=== PATIENT | female | born 1985 | race Caucasian/White ===

== ENCOUNTER 2019-10-02 12:39 | Emergency (ER) | payer MEDICAID, OTHER ==
[~2019-10-02] VITALS: Ht 167.6 cm; Wt 67.0 kg
[2019-10-02] MEDS ORDERED: SODIUM BICARBONATE 1 MEQ/ML, 50ML VIAL ONE ×3 (12:52→13:05)
[2019-10-02] MEDS ORDERED: MIDAZOLAM 1 MG/ML, 5ML ONE (13:03)
[2019-10-02] MEDS ORDERED: FENTANYL PF 100 MCG/2ML ONE (13:03)
[2019-10-02] MEDS ORDERED: BIVALIRUDIN 250 MG ONE (13:04)
[2019-10-02] MEDS ORDERED: LIDOCAINE 1%, 20ML ONE (13:04)
--- NOTE | 2019-10-02 13:29 | NUR ---
code cardiac cancelled per dr mckay.
[2019-10-02] MEDS ORDERED: PROPOFOL 100 ML IV ONE (13:30)
[2019-10-02] MEDS ORDERED: VECURONIUM 10 MG IVPush ONE (13:30)
[2019-10-02] MEDS ORDERED: NOREPINEPHRINE 4 MG in SODIUM CHLORIDE 0.9% 246 ML IV PRN (13:30)
[2019-10-02] MEDS ORDERED: SODIUM BICARBONATE 8.4% 150 MEQ in DEXTROSE 5% 1,000 ML IV SCH (13:30)
[2019-10-02] MEDS ORDERED: EPINEPHRINE 8 MG in SODIUM CHLORIDE 0.9% 250 ML IV PRN (13:30)
[2019-10-02] MEDS ORDERED: EPINEPHRINE SYRINGE 0.1 MG/ML, 10ML ONE (13:55)
[2019-10-02 14:08] LABS: SALICYLATE LEVEL < 1.7 mg/dL (2.8-20.0)
--- NOTE | 2019-10-02 14:57 | NUR ---
LATE ENTRY FOR EVENTS [facility] ARRIVAL AT 1240- [facility] BROUGHT IN BY [facility] AFTER BEING FOUND ALTERED ALONE IN CAR. UPON ARRIVAL TO ED THE PATIENT WAS FOUND [facility], BEING BAGGED WITH SUPPLEMENTAL O2 BY EMS. THE PATIENT WAS FOUND TO HAVE STABLE VITAL SIGNS BUT DUE TO INABILITLY TO PROTECT AIRWAY THE PATIENT WAS INTUBATED USING RSI WITH A 7.5 ETT BY EMMA ARAUJO. SHORTLY AFTER RSI PULSES WERE LOST , ASYSTOLE ON MONITOR AND CPR BEGAN AT 1302. REFER TO CODE SHEET. Addendum: 10/02/19 at 1502 by [email or web address] LATE ENTRY FOR EVENTS [facility] ARRIVAL AT 1240- [facility] BROUGHT IN BY [facility] AFTER BEING FOUND ALTERED ALONE IN CAR. UPON ARRIVAL TO ED THE PATIENT WAS FOUND [facility], BEING BAGGED WITH SUPPLEMENTAL O2 BY EMS. THE PATIENT WAS FOUND TO HAVE STABLE VITAL SIGNS BY EMS BUT DUE TO INABILITLY TO PROTECT AIRWAY THE PATIENT WAS INTUBATED USING RSI WITH A 7.5 ETT BY EMMA ARAUJO. SHORTLY AFTER RSI PULSES WERE LOST , ASYSTOLE ON MONITOR AND CPR BEGAN AT 1302. REFER TO CODE SHEET.
[2019-10-02] MEDS ORDERED: NALOXONE 1 MG/ML, 2ML IVPush ONE (15:00)
[2019-10-02] MEDS ORDERED: SODIUM BICARBONATE 1 MEQ/ML, 50ML VIAL IVPush ONE (15:00)
[2019-10-02] MEDS ORDERED: SUCCINYLCHOLINE 20 MG/ML, 10ML IVPush ONE (15:00)
[2019-10-02] MEDS ORDERED: NALOXONE 0.4 MG/ML, 1ML IVPush ONE (15:00)
[2019-10-02] MEDS ORDERED: ETOMIDATE 20 MG/10 ML IV ONE (15:00)
--- NOTE | 2019-10-02 16:08 | NUR ---
MOTHER, PREMA GOLDSMITH [phone]
[2019-10-02 16:49] LABS: MEAN CORPUSCULAR HEMOGLOBIN 28.9 pg (27.0-34.8); MEAN CORPUSCULAR HGB CONC 31.8 g/dL (32.4-35.8); MEAN CORPUSCULAR VOLUME 90.8 fL (80-100); MEAN PLATELET VOLUME 8.7 fL (7.4-10.4); PLATELET COUNT 350 x10^3/uL (130-400); RED BLOOD COUNT 4.01 x10^6/uL (3.82-5.3); RED CELL DISTRIBUTION WIDTH 14.3 % (9.6-15.2)
[2019-10-02 16:54] LABS: ANION GAP 16 mmol/L (5-15); CHLORIDE 105 mmol/L (98-107); CREATININE 2.04 mg/dL (0.55-1.02)
[2019-10-02 16:55] LABS: ALANINE AMINOTRANSFERASE 19 U/L (12-78); ALBUMIN 2.6 g/dL (3.4-5.0)
[2019-10-02 16:57] LABS: ALKALINE PHOSPHATASE 48 U/L (45-117); BILIRUBIN,TOTAL 0.2 mg/dL (0.2-1.0); TOTAL PROTEIN 5.4 g/dL (6.4-8.2)
[2019-10-02 17:02] LABS: CALCIUM < 5.0 mg/dL (8.5-10.1)
[2019-10-02 17:04] LABS: AMPHETAMINE SCREEN, URINE Negative (Negative); BARBITURATE SCREEN, URINE Negative (Negative); BENZODIAZEPINE SCREEN, URINE Negative (Negative); CANNABINOID SCREEN, URINE Negative (Negative); COCAINE SCREEN, URINE Negative (Negative); METHADONE SCREEN, URINE Negative (Negative); OPIATE SCREEN, URINE Negative (Negative)
[2019-10-02 17:36] LABS: MD YES
[2019-10-02 17:44] LABS: BAND#(MANUAL) 4.88 x10^3/uL; BANDS%(MANUAL) 19 % (0-7); LYMPH#(MANUAL) 1.03 x10^3/uL (1-3.4); LYMPHS% (MANUAL) 4 % (22-44); MONOS#(MANUAL) 0.77 x10^3/uL (0.3-2.7); MONOS% (MANUAL) 3 % (2-9); SEG#(MANUAL) 19.02 x10^3/uL (1.8-6.8); SEGS% (MANUAL) 74 % (42-75)
[2019-10-02 17:47] LABS: <PLATELET ESTIMATE> ADEQUATE; <PLT MORPHOLOGY> NORMAL PLT MORPH; ANISOCYTOSIS 1+; OVALOCYTES 1+
[2019-10-03] MEDS ORDERED: VECURONIUM 10 MG ONE (08:00)
[2019-10-03] MEDS ORDERED: ETOMIDATE 20 MG/10 ML ONE (08:00)
[2019-10-03] MEDS ORDERED: SUCCINYLCHOLINE 20 MG/ML, 10ML ONE (08:00)
== END 2019-10-02 17:20 | disposition expired ==
LOC: MERGE 13:25 → EDBD 13:25 → EDSEX 13:25 → ED 13:25
DX: I46.8 Cardiac arrest due to other underlying condition (principal); R40.20 Unspecified coma; R00.0 Tachycardia, unspecified
CPT/HCPCS: 31500; 71045; 80047; 80053; 80307; 82140; 85025; 92950; 93005; 96374; 99291; 99292; J0330; J2310; J3490; 94002; 96375; 96376; 99283; J0583; J2250; J3010